=== PATIENT | male | born 1970 | race Caucasian/White ===

== ENCOUNTER 2016-10-09 12:25 | Emergency (ER) | payer OTHER ==
[~2016-10-09] VITALS: Ht 165.1 cm; Wt 75.0 kg
[2016-10-09] MEDS ORDERED: METO25 PO (12:46)
[2016-10-09] MEDS ORDERED: HYPROMELLOSE 0.5% 15 ML OPHTHALMIC SOLUTION OD ONE (14:00)
[2016-10-09] MEDS ORDERED: ACETAMINOPHEN 325 MG TABLET PO ONE (14:00)
[2016-10-09 15:10] VITALS: BP 146/96
== END 2016-10-09 15:15 | disposition home or self-care (01) ==
LOC: EMS 12:26
DX: H11.31 Conjunctival hemorrhage, right eye (principal); R51 Headache; I10 Essential (primary) hypertension
CPT/HCPCS: 99283